=== PATIENT | female | born 1980 | race Caucasian/White ===

== ENCOUNTER 2024-11-13 09:27 | Outpatient (AMB) | payer OTHER, SELFPAY ==
--- NOTE | 2024-11-13 09:32 | MHC.OFFVIS ---
Intake Visit Reasons: Low back pain/ Lt. Leg Allergies No Known Allergies Allergy (Verified 11/06/24 06:51) HPI Comments Details: The patient is a 44-year-old female presenting with persistent left leg pain and cramping. She underwent lumbar disc surgery in 2020 for a herniated disc in the lower back. Initially, there was improvement, but symptoms have returned, with numbness and tingling radiating from the hip to the two toes on the left leg. Cramping has intensified in the past six months, often disturbing her sleep. Before the surgical intervention, the patient experienced pain radiating from her back to her left leg which led to seeking orthopedic consultation and subsequent surgery. Recurrent symptoms have been addressed with cortisone and epidural injections, only slightly alleviating discomfort. She reports the current mainstay of discomfort emanates from her leg rather than back pain, particularly at night, necessitating movement to lessen the severity. No other complications such as bladder control issues are observed. She had a fall ten years ago but denies any recent accidents causing the pain. A recent MRI was conducted at another facility. [facility] Medical History (Updated 11/13/24 @ 09:39 by Sonny Hart MD) Primary insomnia Overweight Breast cancer Iron deficiency anemia HLD (hyperlipidemia) Migraine Chronic left-sided low back pain with left-sided sciatica Surgical History (Updated 11/06/24 @ 06:51 by Frantz Augustin CMA) History of bilateral mastectomy Review of Systems Const Details: - Musculoskeletal: Reports leg pain, cramping, numbness, and tingling in the left leg. Denies back pain as a primary current issue. - Neurological: Reports numbness from hip to toes on the left side, with the recent increase in cramping. - Genitourinary: Denies bladder control issues. Physical Exam Neuro Other: Mental Status: Alert and oriented to person, place, and time. Normal attention. Normal spontaneous speech, fluency, and comprehension. No obvious issues with mood and memory. Affect is appropriate. Cranial Nerves: CN II: Visual garcia full to confrontation, visual acuity intact. CN III, IV, : Pupils equal, round, reactive to light and accommodation. Extraocular movements are normal. CN V: Facial sensation is normal. CN VII: Facial movements symmetrical. CN VIII: Hearing intact to bedside conversation is normal. CN IX, X: Palate elevates symmetrically. CN XI: Shoulder shrug and head turn symmetrical. CN XII: Tongue midline without atrophy or fasciculations. Motor: Both knee reflexes are good 2+. Right ankle reflexes 2+ while lift his trace to absent with flexor plantars. No obvious weakness was noted in left leg or foot. Coordination: Niggcw-of-zjbj and liwy-uc-mfti testing normal. No dysmetria. Gait and Station: No obvious gait abnormality. No ataxia or instability. She was able to stand on heels and toes. Extrapyramidal: Full facial expressions and blinking. No rigidity. Movements are appropriate with no tremor or abnormality. Speech: Normal; no dysarthria or tremor. Assessment & Plan Assessment & Plan (1) Lumbar back pain with radiculopathy affecting left lower extremity: Code(s): M54.16 - Radiculopathy, lumbar region Category: Medical Plan During the visit, we discussed the potential diagnosis of S1 radiculopathy contributing to the patient's symptoms of leg pain and numbness. The patient was advised to complete an EMG study and to supply a recent MRI CD for thorough radiologic evaluation. These diagnostic steps are essential in confirming nerve involvement and gauging the severity of radiculopathy. We also discussed possible conservative management options which depend on the findings from these diagnostics. Orders: Orders NE nerve conduction velocity Today M54.16 - Radiculopathy, lumbar region NE electromyogram (EMG) Today M54.16 - Radiculopathy, lumbar region Coding Level of Care Code New Pt Level 4 (61418) Diagnoses Lumbar back pain with radiculopathy affecting left lower extremity M54.16
--- OUTSIDE RECORDS SUMMARY | 2024-11-13 10:31 | XMS_ITS | Clinical Summary ---
Author Organization [facility] Address [address] [place] [address] Care Team Providers Care An/Ssn 2 4 Operator Name Role Phone Ruth Lundy MD Primary Care Provider + Social History Tobacco Use Types Packs/Day Years Used Date Smoking Tobacco: Never Assessed Sex and Gender Information Value Date Recorded Sex Assigned at Not on file Gender Identity Not on file Sexual Orientation Not on file Plan of Treatment Health Maintenance Due Date Last Done Comments Hepatitis B Vaccines (1 of 3 - 3-dose series) 1979 Hepatitis C Screening 1979 Depression Screening 1991 Preventative Health Evaluation 09/01/1997 DTap / Tdap / Td (1 - Tdap) 09/01/1998 Cervical Cancer Screening (Pap Smear) 09/01/2000 COVID-19 Vaccine (2023-2 5 season) 2023 07/01/2020, 06/10/2020 Colon Cancer Screening (Colonoscopy) 09/01/2024 Influenza Vaccine (#1) 2024 03/09/2020 Pneumococcal Vaccine Aged Out No long er eligible based on patient's age to complete this topic RSV Ped < 20 months Aged Out No longe r eligible based on patient's age to complete this topic Care Teams An/Ssn 2 4 Operator Relationship Specialty Start Date End Date Ruth Lundy MD [id number] [place] [address] PCP - General Internal Medicine 09/06/20
--- OUTSIDE RECORDS SUMMARY | 2024-11-13 10:31 | XMS_ITS ---
Author Name [facility] Organization Unknown Care Team Organization Name Specialty Phone Email Start Date End Da te [facility] THANG LYNN Primary Care ethan @[email or web address] g 07/24/2022 4 [facility] Sandip Zamarripa Primary Care 01/24/2022 4
--- OUTSIDE RECORDS SUMMARY | 2024-11-13 10:31 | XMS_ITS | Clinical Summary ---
Author Organization [facility] [address] [place] [address] [place] [phone] Phone Care Team Providers Care Accounting Clerks Supervisor Name Role Phone Richi Sheikh MD Primary Care Pr ovider Allergies No known active allergies Medications ferrous sulfate 325 mg (65 mg iron) EC tablet Take 1 Tablet by mouth 2 times daily. 4 Active ibuprofen (ADVIL,MOTRIN) 200 mg tablet Take 200 mg by mouth every 6 hours as needed. Active cyclobenzaprin e (FLEXERIL) 10 mg tablet Take 1 tablet (10 mg total) by mouth 3 (three) times a day. 5 Active LORazepam (ATIVAN) 0.5 mg tablet Take 1 tablet (0.5 mg total) by mouth See administration instructions. Take 30 minutes prior to procedure. 1 tablet 5 Active Active Problems Problem Noted Date Diagnosed Date Migraine headache 09/01/2024 Overweight (BMI 25.0-29.9) 10/26/2022 Primary insomnia 10/26/2022 Hyperlipidemia 04/28/2022 Iron deficiency anemia 04/28/2022 Breast cancer ([facility] V24, [facility] V28) 020 Overview (03/20/2024): Double mastectomy and reconstruction after dx of left breast cancer Mom also had breast cancer BRCA 2 positive [facility] cancer [facility] Chronic left-sided low back pain with left-sided sciatica 03/09/2020 Overview (03/20/2024): Fracture from a fall in 2008 Intermittent sciatica Lumbar laminotomy with microdiscectomy 10/12/2020 Assessment & Plan (2024 11:56 AM EDT): Patient is s/p left L5-S1 minimally invasive discectomy 10/12/[address] Carlos. She states she did well for quite some time after surgery, for at least 1 year now she has been noticing left lateral leg pain, cramping, pain in the left lateral posterior knee and lateral ankle, feels like the muscle at these joints lock up on her. At first she was getting cramping that would last about 20 minutes at night in the left leg, now she notes the cramping daily with activity, some tingling in the leg. She would rate the left lateral leg pain on an average day 2-8/10. She would rate her daily back pain a fairly consistent 4-5/10. While sitting any length of time she keeps changing positions, tries to avoid lifting, works at a restaurant. Denies right leg symptoms, bowel or bladder incontinence. She has used fgay-hrr-cqjjxlc meds and topical treatments, CBD lotion seems to help. She has been using NSAIDs, cyclobenzaprine, at 1 point trialed gabapentin. She states a variety of activities can flareup her left leg symptoms, not specific to 1 thing. She had a left L5 TFE at [facility] around January 2024, states it helped for a while. Patient had MRI lumbar spine with and without contrast 12/27/2023 from [facility] that shows L5-S1 DDD, Modic changes L5, and S1, no significant stenosis at any level, including L5 nerve root. There are some postop changes with granulation tissue left L5-S1. I reviewed imaging with patient on the computer in detail. Ms. Swanson has chronic low back and left lateral leg pain, cramping, L5-S1 DDD with no recurrent disc herniation noted on MRI from December 2023. She saw improvement for quite some time after left L5 TFE, will call [facility] to see if she can get another injection. We talked about other conservative treatment options like PT, aquatic PT, acupuncture. If she has worsening symptoms with time, any change in symptoms, I told her we will get updated lumbar spine MRI. At this time she does not feel the symptoms are keeping her from her daily activities/working, but are bothersome and she avoids lifting. We can check EMG/NCS study to see if she has acute versus chronic radiculopathy. I will review her results with Dr. Carlos. All questions answered. BRCA1 gene mutation positive 03/09/2020 History of bilateral mastectomy 09/15/2015 Encounters Date Type Department Care Team Description 09/11/2024 Telephone Neurosurgery [address] [phone] Nancy Nagel MA 09/09/2024 8:54 AM EDT - 09/09/2024 11:59 PM EDT Hospital Encounter Radiology Department [address] [phone] Migraine with aura and without status migrainosus, not intractable Discharge Disposition: Home or Self Care 2024 10:30 AM EDT Consult Neurosurgery [address] [phone] Farheen Loving PA Chronic left-sided low back pain with left-sided sciatica 08/15/2024 10:45 AM EDT Office Visit Adult Medicine [address] [phone] Elvira Villareal PA Chronic left-sided low back pain with left-sided sciatica (Primary Dx); Migraine with aura and without status migrainosus, not intractable from Last 3 Months Immunizations Name Administration Dates Next Due Influenza Quadravalent, MDCK , 0.5ml, preservative free (Flucelvax) 6mo and older 04/20/2022,03/09/2020 Influenza trivalent, with pr eservative (Fluzone; Afluria) 6mo and older 02/18/2018 MMR, measles mumps and rubel la Live (Priorix; M-M-R II) 12mo and older 10/04/2018 Zafgen SARS-CoV-2 COVID-19, mRNA, LNP-S, preservative free 07/01/2020,06/10/2020 Tdap Tetanus diptheria acell ular pertussis (Boostrix; Adacel) 7yo and older 07/15/2018 Surgical History Surgery Date Site/Laterality Comments BACK SURGERY 10/12/2020 left L5-S1 minimally invasive discectomy, Dr. Carlos Medical History Medical History Date Comments H/O bilateral mastectomy 09/15/2015 delivery delivered 10/01/2018 Hx of breast reconstruction 12/23/2015 Migraine headache 09/01/2024 Hyperlipidemia 04/28/2022 Iron deficiency anemia 04/28/2022 Breast cancer ([facility] V24, [facility] V28) 03/09/2020 Double mastectomy and recons truction after dx of left breast cancer Mom also had breast cancer BRCA 2 positive [facility] cancer [facility] BRCA1 gene mutation positive 03/09/2020 Family History Medical History Relation Name Comments Breast cancer Aunt Throat cancer Father smoker Heart attack Maternal Grandfather Ovarian cancer Maternal Grandmother Breast cancer Mother Hyperlipidemia Mother Breast cancer Mother's side Relation Name Status Comments Aunt Father Maternal Grandfather Maternal Grandmother Mother Alive Mother's side Social History Tobacco Use Types Packs/Day Years Used Date Smoking Tobacco: Former Cigarettes Smokeless Tobacco: Never Tobacco Cessation:Counseling Given: Not Answered Alcohol Use Standard Drinks/Week Comments Yes 0 (1 standard drink = 0.6 oz pur e alcohol) Housing Instability Answer Date Recorde d Are you worried that in the next 2 months you may not have stable housing? No 08/15/2024 Food Access & Nutrition Answer Date Rec orded Do you have access to a vari ety of food including fruits and vegetables? Yes 08/15/2024 Access to Healthcare Answer Date Record ed Within the last 3 months, ho w many times did you visit the emergency department for your medical care? 0 08/15/2024 Health Literacy Answer Date Recorded How often do you need to hav e someone help you when you read instructions, pamphlets, or other written material from your doctor or pharmacy? Never 08/15/2024 Caregiver: How often do you need to have someone help you when you read instructions, pamphlets, or other written material from your doctor or pharmacy? Not on file 08/15/2024 Financial Risk Answer Date Recorded How hard is it for you to pa y for the very basics like food, housing, medical care, and air conditioning / heating? Somewhat hard 08/15/2024 Transportation Answer Date Recorded Has the lack of transportati on kept you from meetings, work, or from getting things needed for daily living? No Has the lack of transportati on kept you from medical appointments or from getting medications? No 08/15/2024 Social Isolation Answer Date Recorded How often do you feel lonely or isolated from th ose around you? Never 08/15/2024 Food Risk Answer Date Recorded Within the past 12 months we worried whether our food would run out before we got money to buy more. Never true 08/15/2024 Within the past 12 months th e food we bought just didn't last and we didn't have money to get more. Never true 08/15/2024 Dependent Care Answer Date Recorded Do you need help finding or paying for care for your loved ones. For example, child support officer or elderly care for an older adult? No 08/15/2024 Education Answer Date Recorded Do you think completing more education or training, like finishing a GED, going to college, or learning a trade, would be helpful for you? No 08/15/2024 Employment and Income Answer Date Recor ded During the last four weeks, have you been actively looking for work? No 08/15/2024 Living Situation Answer Date Recorded What is your living situation? 0 08/15/2024 Comments No Sex and Gender Information Value Date Recorded Sex Assigned at Not on file Legal Sex Female 4:25 AM EST Gender Identity Not on file Sexual Orientation Not on file Obstetrics History Last Filed Vital Signs Vital Sign Reading Time Taken Comments Blood Pressure 114/82 08/15/2024 10:58 AM EDT Pulse 82 08/15/2024 10:58 AM EDT Temperature 36.6 C (97.9 F) 08/15/2024 10:58 AM EDT Respiratory Rate 14 08/15/2024 10:58 AM EDT Oxygen Saturation 99% 08/15/2024 10:58 AM EDT Inhaled Oxygen Concentration - - Weight 70.3 kg (155 lb) 2024 10:31 AM EDT Height 157.5 cm (5' 2 ) 2024 10:31 AM EDT Body Mass Index 28.35 2024 10:31 AM EDT Plan of Treatment Health Maintenance Due Date Last Done Comments Hepatitis B Vaccines (1 of 3 - 19+ 3-dose series) 09/01/1998 Pneumococcal Vaccine: Pediatrics (0 to 5 Years) and At-Risk Patients (6 to 49 Years) (1 of 2 - PCV) 09/01/1998 Cervical Cancer Screening: P ap Smear 09/01/2000 Colorectal Cancer Screening: Colonoscopy 02/25/2022 HIV Screening 02/25/2022 Hepatitis C Screening 02/25/2022 COVID-19 Vaccine ( - 2023-2 5 season) 2023 01/30/2021, 07/01/2020, 06/10/2020 Influenza Vaccine (#1) 2024 , 03/09/2020, 02/18/2018 Social Influencers of Health Screening 08/15/2025 08/15/2024 Cholesterol Screening (Lipid Panel) 04/20/2027 04/20/2022 DTaP,Tdap,and Td Vaccines (2 - Td or Tdap) 07/15/2028 07/15/2018 MMR Vaccines Aged Out 10/04/2018 No longer eligi ble based on patient's age to complete this topic Depression Screening Completed 08/15/2024 HIB Vaccines Aged Out No longer eligi ble based on patient's age to complete this topic HPV Vaccines Aged Out No longer eligi ble based on patient's age to complete this topic Hepatitis A Vaccines Aged Out No long er eligible based on patient's age to complete this topic IPV Vaccines Aged Out No longer eligi ble based on patient's age to complete this topic Meningococcal ACWY Vaccine Aged Out N o longer eligible based on patient's age to complete this topic Meningococcal B Vaccine Aged Out No l onger eligible based on patient's age to complete this topic RSV Immunization Patients Under 20 months Aged Out No longer eligible b ased on patient's age to complete this topic Varicella Vaccines Aged Out No longer eligible based on patient's age to complete this topic Procedures Procedure Name Priority Date/Time Associated Diagnosis Comments MR BRAIN WO CONTRAST Routine 09/09/2024 9:53 AM EDT Migraine with aura and without status migrainosus, not intractable LIPID PANEL Routine 04/20/2022 from Last 3 Months or Most Recently Relevant to Health Maintenance Results * MR Brain wo Contrast (09/09/2024 9:53 AM EDT) Anatomical Region Laterality Modality Head and Neck Magnetic Resonan ce 09/09/2024 5:09 PM EDT Narrative 09/09/2024 5:13 PM EDT MRI of the head without intravenous contrast. History nonspecific increase in dizziness. Examination was performed on 1.5 Donita magnet without administration of intravenous contrast. No previous MRI examinations are available for comparison. There is no evidence of midline shift, extra or intra-axial blood fluid collections. There is no visible masses, mass effect, territorial infarctions, focal areas of restricted diffusion or magnetic susceptibility artifact. Ventricular system is symmetric and normal in size. Fourth ventricle and basal cisterns are midline and patent. There are a few nonspecific foci of increased FLAIR signal in the subcortical white matter of the arm left parietal and posterior frontal lobes. No focal signal abnormalities visualized in the posterior fossa. Cerebellar tonsils are normally positioned. Pituitary gland is grossly normal. There is small retention cyst in the inferior aspect of the left maxillary sinus, measuring 1.2 cm. Other paranasal sinuses and mastoid processes are unremarkable. CONCLUSIONS: Few nonspecific foci of increased FLAIR signal in the subcortical white matter of the left posterior frontal and parietal lobes. Major differential diagnosis between the infectious/inflammatory etiology, such is multiple sclerosis, Lyme disease, vasculitis, migraine as well as small vessel ischemia among the other etiologies. Small retention cyst in the left maxillary sinus. -------- FINAL REPORT -------- Dictated By: Melba Preciado Dictated Date: 09/09/2024 17:09 ET Assigned Physician: Melba Preciado Reviewed and Electronically Signed By: Melba Preciado Signed Date: 09/09/2024 17:13 ET Workstation ID: [id number] Transcribed By: Self Edit Transcribed Date: 09/09/2024 17:09 ET Procedure Note Melba Preciado MD - 09/09/2024 MRI of the head without intravenous contrast. History nonspecific increase in dizziness. Examination was performed on 1.5 Donita magnet without administration ofintravenous contrast. No previous MRI examinations are available forcomparison. There is no evidence of midline shift, extra or intra-axial blood fluidcollections. There is no visible masses, mass effect, territorialinfarctions, focal areas of restricted diffusion or magneticsusceptibility artifact. Ventricular system is symmetric and normal insize. Fourth ventricle and basal cisterns are midline and patent. Thereare a few nonspecific foci of increased FLAIR signal in the subcorticalwhite matter of the arm left parietal and posterior frontal lobes. Nofocal signal abnormalities visualized in the posterior fossa. Cerebellartonsils are normally positioned. Pituitary gland is grossly normal. Thereis small retention cyst in the inferior aspect of the left maxillarysinus, measuring 1.2 cm. Other paranasal sinuses and mastoid processes areunremarkable. CONCLUSIONS: Few nonspecific foci of increased FLAIR signal in thesubcortical white matter of the left posterior frontal and parietal lobes.Major differential diagnosis between the infectious/inflammatory etiology,such is multiple sclerosis, Lyme disease, vasculitis, migraine as well assmall vessel ischemia among the other etiologies. Small retention cyst in the left maxillary sinus. -------- FINAL REPORT -------- Dictated By: Melba Preciado Dictated Date: 09/09/2024 17:09 ET Assigned Physician: Melba Preciado Reviewed and Electronically Signed By: Melba Preciado Signed Date: 09/09/2024 17:13 ET Workstation ID: [id number] Transcribed By: Self Edit Transcribed Date: 09/09/2024 17:09 ET Elvira TONG IMG MRI PROCEDURES Final Resu lt * (ABNORMAL) Lipid panel (04/20/2022) LDL/HDL Ratio 4 0 - 4 Triglycerides 112 0 - 150 mg/dL Cholesterol 192 0 - 200 mg/dL HDL 47 >=40 mg/dL LDL Cholesterol 123(A) 0 - 100 mg/dL Blood Venous blood specimen / Unknown [facility] Provider LAB BLOOD ORDERABLES Abigail l Result from Last 3 Months or Most Recently Relevant to Health Maintenance [place] [address] [place] [address] Care Teams Accounting Clerks Supervisor Relationship Specialty Start Date End Date Richi Sheikh MD [address], [place] [id number] PCP - General 04/20/22
== END 2024-11-13 09:44 | disposition home or self-care (01) ==
LOC: HO.HSM 09:28
PROVIDERS: PCP Neurological Surgery; Visit Provider Psychiatry & Neurology Neurology
DX: M54.16 Radiculopathy, lumbar region (principal)
CPT/HCPCS: 99204

== ENCOUNTER 2024-12-22 13:45 | Outpatient (REF) | payer OTHER, SELFPAY ==
--- NOTE | 2024-12-22 14:03 | EMG_ITS ---
Chief complaint: Pain, cramping, numbness Reason for referral: Radiculopathy, lumbar region Referred by:?Dr Hart Procedure done: Left lower extremity NCS/EMG Left peroneal and tibial motor studies were performed with F responses and tibial H-reflex. Left superficial peroneal and sural sensory studies were performed and median lateral mixed plantars sensory studies were performed an EMG needle examination was performed. Impression: This study did not reveal any significant abnormality to suggest entrapment neuropathy or radiculopathy MTDD
--- OUTSIDE RECORDS SUMMARY | 2024-12-22 16:13 | XMS_ITS | Encounter Summary ---
Author Organization [facility] Address [address] [place] [address] Care Team Providers Care Fiber Design Engineer Name Role Phone Richi Sheikh MD Primary Care Pr ovider Encounter Details Date Type Department Care Team ([facility] Contact Info) Description 12/18/2024 Telephone Neurosurgery [facility] [address] [place] [address] Farheen Loving PA [address], [facility] [address] [place] [address] Social History Tobacco Use Types Packs/Day Years Used Date Smoking Tobacco: Former Cigarettes Smokeless Tobacco: Never Alcohol Use Standard Drinks/Week Comments Yes 0 [...] care for your loved ones. For example, director child or elderly care for an older adult? [...] Date Recorded What is your living situation? Unrecognized valu e 08/15/2024 Comments No Sex and Gender Information Value Date Recorded Sex Assigned at Not on file Legal Sex Female 4:25 AM EST Gender Identity Not on file Sexual Orientation Not on file documented as of this encounter Progress Notes * RAN Harding 12/18/2024 10:29 AM EDT I called patient to check in with her, I had her on my list to review EMG, we did get an office note from Dr. Hart from 11/13/2024, and his plan was to schedule EMG study but we had never received any results. Patient states she was scheduled to have the EMG but was sick and is waiting to hear back with the date to reschedule EMG. She will call and let me know once it is completed. documented in this encounter Plan of Treatment Not on file documented as of this encounter Visit Diagnoses Not on filedocumented in this encounter Additional Health Concerns Assessment Noted Time PHQ-9 Depression Total Score: 1 08/16/19 25 10:17 AM EDT documented as of this encounter Care Teams Fiber Design Engineer Relationship Specialty Start Date End Date Richi Sheikh MD [address] [place] [phone] PCP - General 04/20/22 documented as of this encounter
--- OUTSIDE RECORDS SUMMARY | 2024-12-22 16:13 | XMS_ITS | Clinical Summary ---
Author Organization [facility] Address [address] [place] [address] Care Team Providers Care Vp Ancillary Name Role Phone Ruth Lundy MD Primary [...] 09/01/1998 Cervical Cancer Screening (Pap Smear) 09/01/2000 Colon Cancer Screening (Colonoscopy) 09/01/2024 COVID-19 Vaccine (3 - 2024-2 6 season) 2024 07/01/2020, 06/10/2020 Influenza Vaccine (#1) 2024 03/09/2020 Pneumococcal Vaccine Aged Out No long er eligible based on patient's age to complete this topic RSV Ped < 20 months Aged Out No longe r eligible based on patient's age to complete this topic Care Teams Vp Ancillary Relationship Specialty Start Date End Date Ruth Lundy MD [address] [address] [place] [address] PCP - General Internal Medicine 09/06/20
--- OUTSIDE RECORDS SUMMARY | 2024-12-22 16:13 | XMS_ITS | Clinical Summary ---
Author Organization [facility] [address] [place] [address] [place] [phone] Phone Care Team Providers Care College Service Officer Name Role Phone Richi Sheikh MD Primary [...] 04/28/2022 Iron deficiency anemia 04/28/2022 Breast cancer ([facility] V24, [facility] V28) 020 Overview (03/20/2024): Double mastectomy and reconstruction after dx of left breast cancer Mom also had breast cancer BRCA 2 positive [facility] cancer [facility] Chronic left-sided low back pain with [...] bowel or bladder incontinence. She has used tphl-rii-bqtstbw meds and topical treatments, CBD lotion seems to help. She has been using NSAIDs, cyclobenzaprine, at 1 point trialed gabapentin. She states a variety of activities can flareup her left leg symptoms, not specific to 1 thing. She had a left L5 TFE at [facility] around January 2024, states it helped for a while. Patient had MRI lumbar spine with and without contrast 12/27/2023 from [facility] that shows L5-S1 DDD, Modic changes L5, [...] time after left L5 TFE, will call [facility] physiatry to see if she can get [...] Encounters Date Type Department Care Team Description 12/18/2024 Telephone Neurosurgery [place] [facility] [place] [address] [facility] [address] [place] [address] Farheen Loving PA from Last 3 Months Immunizations Immunization Administration Dates Next Due Influenza Quadravalent, MDCK , 0.5ml, preservative free (Flucelvax) 6mo and older 04/20/2022,03/09/2020 Influenza trivalent, with pr eservative (Fluzone; Afluria) 6mo and older 02/18/2018 MMR, measles mumps and rubel la Live (Priorix; M-M-R II) 12mo and older 10/04/2018 Pfizer SARS-CoV-2 COVID-19, mRNA, LNP-S, preservative free 07/01/2020,06/10/2020 [...] 04/28/2022 Iron deficiency anemia 04/28/2022 Breast cancer (CMS/HCC V24, CMS/HCC V28) 03/09/2020 Double mastectomy and recons truction after dx of left breast cancer Mom also had breast cancer BRCA 2 positive [facility] cancer [facility] BRCA1 gene mutation positive 03/09/2020 Family [...] for your loved ones. For example, child and adolescent psychologist or elderly care for an older adult? [...] Health Maintenance Due Date Last Done Comments Colorectal Cancer Screening: Colonoscopy 1980 Hepatitis B Vaccines (1 of 3 - 19+ 3-dose series) 09/01/1998 Pneumococcal Vaccine: Pediatrics (0 to 5 Years) and At-Risk Patients (6 to 49 Years) (1 of 2 - PCV) 09/01/1998 Cervical Cancer Screening: P ap Smear 09/01/2000 HPV Vaccines (1 - Risk 3-dos e SCDM series) 09/01/2006 HIV Screening 02/25/2022 Hepatitis C Screening 02/25/2022 COVID-19 Vaccine ( - 2024-2 6 season) 2024 01/30/2021, 07/01/2020, 06/10/2020 Influenza Vaccine (#1) 2024 3, 03/09/2020, 02/18/2018 Social Influencers of Health Screening 08/15/2025 08/15/2024 Cholesterol Screening (Lipid Panel) 04/20/2027 04/20/2022 DTaP,Tdap,and Td Vaccines (2 - Td or Tdap) 07/15/2028 07/15/2018 RSV Immunization Adult Patients (1 - 1-dose 75+ series) 09/01/2054 MMR Vaccines Aged Out 10/04/2018 No longer [...] Procedure Name Priority Date/Time Associated Diagnosis Comments EXTERNAL NEUROLOGY REPORT Routine 11/13/2024 8:09 AM EDT LIPID PANEL Routine 04/20/2022 from Last 3 Months or Most Recently Relevant to Health Maintenance Results * External Neurology Report (11/13/2024 8:09 AM EDT) Historical Provider NEUROLOGY ORDERABLES Abigail l Result * (ABNORMAL) Lipid panel (04/20/2022) LDL/HDL Ratio 4 0 - 4 Triglycerides 112 0 - 150 mg/dL Cholesterol 192 0 - 200 mg/dL HDL 47 >=40 mg/dL LDL Cholesterol 123(A) 0 - 100 mg/dL Blood Venous blood specimen / Unknown Historical Provider LAB BLOOD ORDERABLES Abigail l Result from Last 3 Months or Most Recently Relevant to Health Maintenance Insurance [facility] Care Teams College Service Officer Relationship Specialty Start Date End Date Richi Sheikh MD [address] [place] [phone] PCP - General 04/20/22
== END 2024-12-22 13:46 | disposition home or self-care (01) ==
LOC: HO.NEURO 13:45
PROVIDERS: PCP Family Medicine; Visit Provider Internal Medicine
DX: M54.16 Radiculopathy, lumbar region (principal)
CPT/HCPCS: 95886; 95910

== ENCOUNTER 2025-01-01 09:46 | Outpatient (AMB) | payer OTHER, SELFPAY ==
--- NOTE | 2025-01-01 09:59 | A.OFFVIS_ITS ---
Vital Signs 01/01/25 10:05 Height 5 ft 2 in Weight 160 lb BMI 29.3 BP 139/84 Blood Pressure Location Rt brachial Position Sitting Respiration 16 Pulse 84 Pulse Source Pulse Oximeter Pulse Oximetry (%) 100 Oxygen Delivery Method Room Air Intake Visit Reasons: results for EMG LE Manager Disaster Recovery Required: No Allergies No Known Allergies Allergy (Verified 01/01/25 10:06) Medication List - Last Reconciled 01/01/25 by Ruth Ji CNP cyclobenzaprine 10 mg PO TID magnesium oxide 400 mg PO BEDTIME 90 days HPI Comments Details: Niurka is a 44-year-old female patient presented to the clinic today for an EMG follow up. She was most recently seen by Dr. Hart presenting with a persistent left leg pain and cramping. She underwent a lumbar disc surgery in 2020 for herniated disc in the lower back. Initially there was improvement but her symptoms returned including numbness and tingling radiating from the hip to the toes of the left leg. She also has cramping to this like which has intensified over the past 6 months. Prior to her surgical intervention in 2020, she has been experiencing pain radiating from the back of her left leg. She has since had some cortisone and epidural injections which have only slightly alleviated her discomfort. Her more recent discomfort radiates from her leg rather than from her back in his worse at night. She was recommended to obtain her recent imaging from outside facility on a disc and to obtain an EMG study to better localize her pain. Her EMG study performed 12/22/2024 was unrevealing and did not suggest any significant abnormality to suggest entrapment neuropathy or radiculopathy. Today she tells me that she has not had any significant changes in her symptoms since her visit. She continues to discomfort and paresthesias radiating from her left leg. She does describe a sense of tightness and numbness to her calves radiating to the front of her shins on both legs but worse on the left. Her right sided tightening and numbness sensation to the right side just started yesterday. She denies any numbness or tingling to feet or to her right area. She has not had any change in her balance. She again denies low back pain but rather has pain just to the left lower extremity as described visit. Recent workup: EMG study 12/22/2024: Left peroneal and tibial motor studies were performed with F responses and tibial H-reflex. Left superficial peroneal and sural sensory studies were performed and median lateral mixed plantars sensory studies were performed an EMG needle examination was performed. Impression: This study did not reveal any significant abnormality to suggest entrapment neuropathy or radiculopathy PFSH Medical History (Updated 01/02/25 @ 09:12 by Ruth Ji CNP) Primary insomnia Overweight Breast cancer Iron deficiency anemia HLD (hyperlipidemia) Migraine Chronic left-sided low back pain with left-sided sciatica Surgical History (Updated 11/06/24 @ 06:51 by Frantz Augustin CMA) History of bilateral mastectomy Review of Systems Const All systems reviewed & are unremarkable except as noted in HPI and below Physical Exam Vital Signs: Last Vital Signs Pulse 84 01/01/25 10:05 Resp 16 01/01/25 10:05 BP 139/84 01/01/25 10:05 Pulse Ox 100 01/01/25 10:05 Oxygen Delivery Method Room Air 01/01/25 10:05 BMI result Body Mass Index 29.3 Const General: cooperative, comfortable and no acute distress Orientation/consciousness: oriented to person, oriented to place and oriented to time Neuro General: oriented to person, oriented to place and oriented to time Cranial nerves: Yes CN's II-XII intact bilaterally Cognition (Neuro): normal cognition Gait exam (Neuro): Normal gait present Motor exam (neuro): 5/5 motor strength present throughout Deep tendon reflexes (DTR's): Right triceps reflex intensity grade: 2+, Left triceps reflex intensity grade: 2+, Rt Biceps (C5, C6): 2+, Left biceps reflex intensity grade: 2+, Right brachioradialis reflex intensity grade: 2+, Left brachioradialis reflex intensity grade: 2+, Right patellar reflex intensity grade: 2+, Left patellar reflex intensity grade: 2+, Right ankle reflex intensity grade: 2+ and Left ankle reflex intensity grade: 0 Coordination: [id number] test normal Assessment & Plan Assessment & Plan (1) Left leg paresthesias: Code(s): R20.2 - Paresthesia of skin Category: Medical (2) Lower extremity numbness: Code(s): R20.0 - Anesthesia of skin Category: Medical Plan Niurka is a 44-year-old female patient presented to the clinic today for an EMG follow up. She was most recently seen by Dr. Hart presenting with a persistent left leg pain and cramping. Her EMG study to the E was unrevealing in terms of cause for her symptoms though her recent lumbar spine imaging did show some soft tissue changes around the S1 nerve root. She is now having some symptoms to the bilateral calf areas which is new to the right side as a couple of days ago. This is a sensation of tightness and numbness to the skin. I have recommended a trial of magnesium 400 mg nightly, good hydration, and application of heat to the low back and legs intermittently in the evening. She does plan to see her neurosurgeon soon. Once she sees Neurosurgery and starts supportive measures at home, we will follow-up and perform any further diagnostics if indicated such as a lab workup for other forms of neuropathy. Medications: New magnesium oxide 400 mg PO BEDTIME 90 tabs 3RF 90 days Coding Level of Care Code Est Pt Level 3 (58884) Diagnoses Left leg paresthesias R20.2 Lower extremity numbness R20.0
[2025-01-01 10:05] VITALS: BP 139/84; PULSE 84; RESP 16; O2SAT 100; BMI 29.3
--- OUTSIDE RECORDS SUMMARY | 2025-01-01 11:24 | XMS_ITS | Clinical Summary ---
Author Organization [facility] [address] Address [address] [place] [address] Phone Care Team Providers Care Boss Miner Name Role Phone Richi Sheikh MD Primary [...] 04/28/2022 Iron deficiency anemia 04/28/2022 Breast cancer ([facility] V24, [facility] V28) 020 Overview (03/20/2024): Double mastectomy and reconstruction after dx of left breast cancer Mom also had breast cancer BRCA [address] [facility] Chronic left-sided low back pain with left-sided [...] bowel or bladder incontinence. She has used adfr-olj-lbfwtop meds and topical treatments, CBD lotion seems to help. She has been using NSAIDs, cyclobenzaprine, at 1 point trialed gabapentin. She states a variety of activities can flareup her left leg symptoms, not specific to 1 thing. She had a left L5 TFE at [facility] around January 2024, states it helped for a while. Patient had MRI lumbar spine with and without contrast 12/27/2023 from [facility] that shows L5-S1 DDD, Modic changes [...] time after left L5 TFE, will call [facility] to see if she can get [...] Encounters Date Type Department Care Team Description 12/26/2024 Telephone Neurosurgery [address] [place] [phone] Farheen Loving PA 12/18/2024 Telephone Neurosurgery [facility] [address] [facility] [address] [place] [address] Farheen Loving PA from Last 3 Months Immunizations Immunization Administration Dates Next Due Influenza Quadravalent, MDCK , 0.5ml, preservative free (Flucelvax) 6mo and older 04/20/2022,03/09/2020 Influenza trivalent, with pr eservative (Fluzone; Afluria) 6mo and older 02/18/2018 MMR, measles mumps and rubel la Live (Priorix; M-M-R II) 12mo and older 10/04/2018 [employer] SARS-CoV-2 COVID-19, mRNA, LNP-S, preservative free 07/01/2020,06/10/2020 [...] 04/28/2022 Iron deficiency anemia 04/28/2022 Breast cancer ([facility]/HCC V24, CMS/HCC V28) 03/09/2020 Double mastectomy and recons truction after dx of left breast cancer Mom also had breast cancer BRCA 2 positive [facility] cancer [facility] BRCA1 gene mutation positive 03/09/2020 Family [...] Record ed Within the last 3 months, shea kowalski many times did you visit the emergency [...] for your loved ones. For example, child specialist or elderly care for an older adult? [...] 2024 10:31 AM EDT Plan of Treatment Upcoming Encounters Date Type Department Care Team (Late st Contact Info) Description 01/16/2025 10:30 AM EDT Office Visit [facility] [address] [phone] Jessenia Carlos MD [address] [place] [address] Health Maintenance Due Date Last Done Comments [...] 02/25/2022 Hepatitis C Screening 02/25/2022 COVID-19 Vaccine (4 - 2024-2 6 season) 2024 01/30/2021, 07/01/2020, [...] Most Recently Relevant to Health Maintenance Insurance [facility] Care Teams Boss Miner Relationship Specialty Start Date End Date Richi Sheikh MD [address] [place] [phone] PCP - General 04/20/22
--- OUTSIDE RECORDS SUMMARY | 2025-01-01 11:24 | XMS_ITS | Clinical Summary ---
Author Organization [facility] Address [address] [place] [address] Care Team Providers Care Strategy Manager Name Role Phone Ruth Lundy MD Primary [...] age to complete this topic Care Teams Strategy Manager Relationship Specialty Start Date End Date Ruth Lundy MD [id number] [place] [phone] PCP - General Internal Medicine 09/06/20
== END 2025-01-01 10:37 | disposition home or self-care (01) ==
LOC: HO.HSM 09:47
PROVIDERS: PCP Family Medicine; Visit Provider Nurse Practitioner
DX: R20.2 Paresthesia of skin (principal); R20.0 Anesthesia of skin
CPT/HCPCS: 99213